=== PATIENT | male | born 1940 | race Caucasian/White ===

== ENCOUNTER 2019-09-26 13:09 | Inpatient (IN) | payer MEDICARE, BC ==
[~2019-09-26] VITALS: Ht 177.8 cm; Wt 86.2 kg
--- NOTE | 2019-09-26 13:20 | NUR ---
BIB DEPRESSED, INSOMNIA FOR DAYS. "I FEEL SUICIDAL." "I'M JUST TIRED OF LIFE". TO ER BED 11, HOOKED TO MONITOR, CHANGED TO HOSP GOWN, PROVIDED W WARM BLANKET, PATIENT AOx4, BREATHING EVEN AND UNLABORED. DR MARTINEZ AT BEDSIDE, 1:1 SITTER AT BEDSIDE Addendum: 09/26/19 at 1345 by ELZA BIB FRIEND IVETH CAST FOR BEING DEPRESSED, INSOMNIA FOR DAYS. "I FEEL SUICIDAL." "I'M JUST TIRED OF LIFE". TO ER BED 11, HOOKED TO MONITOR, CHANGED TO HOSP GOWN, PROVIDED W WARM BLANKET, PATIENT AOx4, BREATHING EVEN AND UNLABORED. DR MARTINEZ AT BEDSIDE, 1:1 SITTER AT BEDSIDE
--- NOTE | 2019-09-26 13:25 | NUR ---
PA FOSTER AT BEDSIDE
--- NOTE | 2019-09-26 13:40 | NUR ---
URINE SAMPLE COLLECTED AND SENT TO LAB
[2019-09-26 13:42] LABS: BASOPHILS % (AUTO) 0.3 % (0.0-2.0); EOSINOPHILS % (AUTO) 0.9 % (0.0-6.0); HEMATOCRIT 43 % (39-51); HEMOGLOBIN 14.4 g/dL (13.5-17.5); LYMPHOCYTES # (AUTO) 1.3 /CMM (0.8-4.8); LYMPHOCYTES % (AUTO) 12.3 % (20.0-44.0); MEAN CORPUSCULAR HGB CONC 33 g/dl (31.0-36.0); MEAN CORPUSCULAR VOLUME 102 fL (80-96); MONOCYTES # (AUTO) 0.7 /CMM (0.1-1.30); MONOCYTES % (AUTO) 6.8 % (2.0-12.0); NEUTROPHILS # (AUTO) 8.2 /CMM (1.8-8.9); NEUTROPHILS % (AUTO) 79.7 % (43.0-81.0); PLATELET COUNT (AUTO) 227 /CMM (150-450); RED BLOOD CELL COUNT(AUTO) 4.25 MIL/uL (4.5-6.0); WHITE BLOOD COUNT (AUTO) 10.3 K/uL (4.3-11.0)
[2019-09-26 13:44] LABS: APPEARANCE,URINE Clear (CLEAR); BILIRUBIN,URINE Negative (NEGATIVE); BLOOD, URINE Negative Ery/uL (NEGATIVE); COLOR,URINE Yellow (YELLOW); KETONES,URINE Negative (NEGATIVE); LEUKOCYTE ESTERASE ,URINE Negative (NEGATIVE); NITRITE, URINE Negative (NEGATIVE); PH,URINE 6.5 (5.0-8.0); PROTEIN,URINE Negative (NEGATIVE); UGLUCOSE Negative (NEGATIVE); UROBILINOGEN,URINE 0.2 EU/dL (0.2)
--- NOTE | 2019-09-26 13:46 | NUR ---
FRIEND: IVETH CAST [phone] DAUGHTER: SIGRID LOYOLA ([facility]) [phone]
[2019-09-26 13:58] LABS: ALANINE AMINOTRANSFERASE 22 U/L (12-78); ALBUMIN 3.6 g/dL (3.4-5.0); ALCOHOL, BLOOD < 3 mg/dL (0-0); ALKALINE PHOSPHATASE 196 U/L (46-116); ASPARTATE AMINOTRANSFERASE 23 U/L (15-37); BILIRUBIN,DIRECT 0.1 mg/dL (0.0-0.2); BILIRUBIN,TOTAL 0.4 mg/dL (0.2-1.0); CALCIUM, SERUM 8.5 mg/dL (8.5-10.1); CARBON DIOXIDE 26 mmol/L (21-32); CHLORIDE 105 mmol/L (98-107); CREATININE 1.3 mg/dL (0.6-1.3); GLUCOSE 99 mg/dL (74-106); POTASSIUM 4.8 mmol/L (3.5-5.1); SALICYLATE 4.5 mg/dL (2.8-20.0); SODIUM SERUM 141 mmol/L (136-145); TOTAL PROTEIN, SERUM 7.2 g/dL (6.4-8.2); UREA NITROGEN, BLOOD 18 mg/dL (7-18)
[2019-09-26 14:02] LABS: ACETAMINOPHEN 0 ug/ml (10-30)
[2019-09-26] MEDS ORDERED: ESCI20TA PO (14:53)
[2019-09-26] MEDS ORDERED: QUET25TA PO (14:53)
[2019-09-26] MEDS ORDERED: ALPR2TAB7 PO (14:53)
[2019-09-26] MEDS ORDERED: MIRT30TA7 PO (14:53)
[2019-09-26] MEDS ORDERED: ATOR10TA PO (14:53)
--- NOTE | 2019-09-26 14:53 | NUR ---
IVETH FRIEND IVETH'S HOME NUMBER FRIEND
[2019-09-26] MEDS ORDERED: ALPRAZOLAM 0.5 MG TABLET PO ONE ×2 (15:00→15:30)
[2019-09-26] MEDS ORDERED: ALPRAZOLAM 0.5 MG TABLET ONE ×2 (15:11→15:12)
--- NOTE | 2019-09-26 15:15 | NUR ---
FLYING II INSTRUCTOR ELIZABETH VALADEZ AT BEDSIDE
--- NOTE | 2019-09-26 16:05 | NUR ---
CALLED NURSING SUP FOR [facility] BED.
--- NOTE | 2019-09-26 16:28 | NUR ---
ATTEMPTED TO CALL REPORT, RECIEVING NURSE ON BREAK. WILL CALL BACK IN 15 MINS.
--- NOTE | 2019-09-26 16:42 | NUR ---
report given to barbra ross of [facility]
[2019-09-26] MEDS ORDERED: LORAZEPAM 1 MG TABLET PO STA (17:57)
[2019-09-26] MEDS ORDERED: ZOLPIDEM TARTRATE 5 MG TABLET PO PRN (18:00)
[2019-09-26] MEDS ORDERED: LORAZEPAM 1 MG TABLET PO PRN (18:00)
[2019-09-26] MEDS ORDERED: MAGNESIUM HYDROXIDE 30 ML UDC PO PRN (18:00)
[2019-09-26] MEDS ORDERED: ACETAMINOPHEN 325 MG TABLET PO PRN (18:00)
[2019-09-26] MEDS ORDERED: MAG HYDROX/AL HYDROX/SIMETH 30 ML UDC PO PRN (18:00)
[2019-09-26] MEDS ORDERED: BLOOD SUGAR DIAGNOSTIC 1 EACH STRIP IN ONE (18:00)
--- NOTE | 2019-09-26 18:20 | NUR ---
PATIENT IS AN 79 YO MALE BROUGHT IN TO THE HOSPITAL, ADMITTED ON A 5150 FOR DTS, FROM HOME. PATIENT IS ADMITTED ON A 5150 FOR DTS FOR BEING INCREASINGLY DEPRESSED, C/O INSOMNIA, STATING HE DOES NOT WANT TO LIVE ANYMORE AND HAVING MOOD SWINGS. UPON FACE TO FACE ASSESSMENT PATIENT IS AOX4, IS VERY ANXIOUS, WRINGING HIS HANDS, UPSET ABOUT THE 72 HOUR HOLD. THE PATIENT SEEMS FORGETFUL AND DEPRESSED. HE DENIES SI/HI AND VAH. INFORMED MD OF ADMISSION ORDERS. PATIENT SIGNED ADMISSION FORMS. PATIENT REFUSED SKIN CHECK. PATIENT SEARCHED FOR CONTRABAND. FALL PRECAUTIONS IN PLACE AND SAFETY CHECKS OBSERVED. PATIENTS RIGHTS HANDBOOK AND GUIDE TO PRESCRIPTIONS GIVEN. WILL CONTINUE TO MONITOR Q15 FOR MOOD,SAFETY AND BEHAVIOR.
--- NOTE | 2019-09-26 19:00 | NUR ---
[facility] RN NOTES: RECEIVED NEW ADMISSION FROM DAY SHIFT FOR COMPLETE THE ADMISSON PROCESS , PT. CAME AROUND IN DAY SHIFT AT 17:46, WILL CONTINUITY WITH CARE.
--- NOTE | 2019-09-26 19:30 | NUR ---
[facility] RN OPENING NOTES: PATIENT RESTING IN HIS BED, EASILY AGITED ,DISHELVED ,PARANOID DENIES SI/HI/AVH AT THIS TIME,.ENCOURAGED FOR VERBALIZATION OF FEELINGS, SAFETY PRECAUTIONS IMPLEMENTED. INTERACT WITH ENGAGED, WILL CONTINUE TO MONITOR Q15MIN ROUNDS FOR SAFETY AND BEHAVIOR.
--- NOTE | 2019-09-26 20:00 | NUR ---
RN NOTES: PT. REFUSED FULL BODY SKIN ASSESMENT AND PICTURES AND PT. BEHAVIOR VERY UNOOPERTIVE, ENCOURAGED X 3 EXPLINED RISKS AND BENEFITS , STILL REUSED , ENDORSE TO AM RN FOR CONTINUITY OF CARE.
[2019-09-26 20:58] VITALS: BP 148/78
[2019-09-26 22:28] VITALS: BP 123/78
[2019-09-26] MEDS: ATORVASTATIN 10 MG TABLET PO SCH (23:01)
--- NOTE | 2019-09-27 05:06 | NUR ---
[facility] RN NOTES : PT.C/O AGITATION , PACING IN HALLWAY AND ROOM , PARANOID ,ATIVAN 1 MG PO PRN GIVEN PER PT. REQUEST, WILL CONTINUE TO MONITOR.
--- NOTE | 2019-09-27 05:29 | NUR ---
RN NOTES: PT. REFUSED AM LABS, ENCOURAGE X3 EXPLINED RISKS AND BENEFITS STILL REFUSED.
--- NOTE | 2019-09-27 06:31 | NUR ---
[facility] RN CLOSING NOTE: PATIENT AWAKE AT THIS TIME ,EASILY AGITAED ,PARANOID DISHELVED , FOCUSING ON GOING HOME, DISHELVED,HYPERVERBAL, NEEDS FREQUENTLY REDIRECTIONS NO ACUTE DISTRESS NOTED ,DENIES SI/HI/AVH AT THIS TIME. SAFETY PRECAUTIONS IMPLEMENTED.ALL NEEDS ATTENDED AND ANTICIPATED, ENCOURGED FOR VERBALIZED ANY FEELING . WILL CONTINUE TO MONITOR FOR PT'S SAFETY AND BEHAVIOR .
[2019-09-27 08:00] VITALS: BP 142/67
[2019-09-27] MEDS ORDERED: hydrOXYzine PAMOATE 25 MG CAPSULE PO PRN (09:30)
[2019-09-27] MEDS: clonazePAM 1 MG TABLET PO SCH ×4 (10:02→21:25)
[2019-09-27] MEDS: DIVALPROEX SODIUM 250 MG TABLET.DR PO SCH ×3 (10:57→16:33)
[2019-09-27] MEDS: SERTRALINE HCL 50 MG TABLET PO SCH (10:57)
--- NOTE | 2019-09-27 12:16 | NUR ---
FAMILY CONTACT: SW received a call from pts sister Jolly [phone] requesting to speak to the MD regarding pts treatment. SW explained that pt did not give consent to speak to family regarding his treatment therefore the MD will not call her to discuss pts treatment as that is a violation for his rights. Sister then demanded SW place pt in a fpc psychiatric facility or in a residential treatment center. SW explained that pt will be discharged home as that is what he wishes and also explained that pts cannot be referred to treatment centers without them agreeing to treatment. Sister explained that pt has a long history of substance abuse and self-medicating and also requested pt have a neurological consultation as she states she believes pt has Dementia. SW stated that she will share this information with MD. Sister agreed.
[2019-09-27 13:15] LABS: CHOLESTEROL 128 mg/dL (<200); HDL CHOLESTEROL 61 mg/dL (40-60); LDL 51 mg/dL (0-99); TRIGLYCERIDES 114 mg/dL (30-150)
[2019-09-27 13:16] LABS: ALBUMIN 3.8 g/dL (3.4-5.0); BILIRUBIN,TOTAL 0.4 mg/dL (0.2-1.0); CALCIUM, SERUM 8.9 mg/dL (8.5-10.1); CREATININE 1.2 mg/dL (0.6-1.3); POTASSIUM 4.4 mmol/L (3.5-5.1); TOTAL PROTEIN, SERUM 7.7 g/dL (6.4-8.2)
--- NOTE | 2019-09-27 13:59 | NUR ---
INITIAL DISCHARGE PLAN: Per pt, he wishes to be discharged back home [address] [place], [place] [address] . ALESHA will help form a safe and proper discharge in collaboration with .
[2019-09-27 16:00] VITALS: BP 140/79
[2019-09-27] MEDS ORDERED: INSULIN REGULAR, HUMAN 100 UNIT/ML 10 ML VIAL ONE (19:38)
[2019-09-27] MEDS ORDERED: DEXTROSE 50%-WATER 50 ML DISP.SYRIN ONE (19:38)
[2019-09-27 20:00] VITALS: BP 145/93
[2019-09-27] MEDS: ATORVASTATIN 10 MG TABLET PO SCH (21:30)
[2019-09-27] MEDS: QUETIAPINE FUMARATE 100 MG TABLET PO SCH (21:33)
[2019-09-28 08:00] VITALS: BP 147/87
[2019-09-28] MEDS: clonazePAM 1 MG TABLET PO SCH ×4 (09:02→21:38)
[2019-09-28] MEDS: SERTRALINE HCL 50 MG TABLET PO SCH (09:02)
[2019-09-28] MEDS: DIVALPROEX SODIUM 250 MG TABLET.DR PO SCH ×3 (09:02→16:28)
--- NOTE | 2019-09-28 14:05 | NUR ---
Group Note: ALESHA invited the patient to attend group therapy on 09/28/2019 1 pm to discuss what changes they would like to see in their lives as a result of their stay in [facility]. The patient thanked ALESHA for the invitation and stated, "I will try to attend tomorrow". ALESHA encouraged the pt. to attend however, pt. refused.
--- NOTE | 2019-09-28 15:51 | NUR ---
Family Contact: Pts daughter, Carol ([phone]), and spoke to her about the pts discharge plan. She stated that she wanted to be provided with an update about the pts stay. SW stated that the pt wants to return to his home and is refusing to be placed in a treatment center or a nursing facility. Pts daughter stated that she wanted to talk to the pts MD.
--- NOTE | 2019-09-28 15:54 | NUR ---
Individual Intervention with the pt: SW met with the pt at [facility] and discussed the pts discharge plan. Pt stated that he wanted to be discharged to his home and he is refusing to be placed. Pt stated that he would accept referrals but he would not be placed somewhere other than his home. Pt stated that the MD informed him that the pt would be discharged the following day.
[2019-09-28 16:00] VITALS: BP 136/80
[2019-09-28 20:48] VITALS: BP 152/87
[2019-09-28] MEDS: ATORVASTATIN 10 MG TABLET PO SCH (21:38)
[2019-09-28] MEDS: QUETIAPINE FUMARATE 100 MG TABLET PO SCH (21:38)
[2019-09-29 08:00] VITALS: BP 159/86
[2019-09-29] MEDS: clonazePAM 1 MG TABLET PO SCH (08:03)
[2019-09-29] MEDS: DIVALPROEX SODIUM 250 MG TABLET.DR PO SCH (08:03)
[2019-09-29] MEDS: SERTRALINE HCL 50 MG TABLET PO SCH (08:03)
--- NOTE | 2019-09-29 08:48 | NUR ---
FAMILY CONTACT: ALESHA contacted pts sister Jolly [phone] and informed her pt will be discharged on this present day. ALESHA provided sister with substance abuse resources to [facility] [address] [place] [address] Tel. , [facility] [address] [place] [address] , [facility] [address] [place] [address] .
--- NOTE | 2019-09-29 10:47 | NUR ---
DISCHARGE NOTE: Pt will be discharged at 1:00pm via [facility] home [address] [place] [address]. Pts sister Jolly [phone] has been notified and she agreed with discharge plan. Pts mood is anxious with congruent affect. Pt denied visual/auditory hallucinations and denied suicidal/homicidal ideation. Patient was referred to the [address] [address] / and was encouraged to present at 9am on Monday September 30, 2019. Additional resources included [facility] [address] [place] [address] and [facility] [address] [place] [address] . Pt was also given a referral to Psychiatrist: Dr. Myers [facility] [address] [facility] [phone] . where his polysubstance use can be addressed. Other referrals included [facility] Address: [address] [place] [address] . The multidisciplinary exit care form was done, printed, signed, and given to the patient. Addendum: 09/29/19 at 1138 by BILLY EDUARDO PT IS BEING DISCHARGED AMA THEREFORE TRANSPORTATION WILL NO BE PROVIDED BY [facility]. PT STATES HE WILL PAY FOR HIS OWN TAXI AND HAS MONEY. SW CONFIRMED PT HAS MONEY TO PAY FOR TAX[facility].
--- NOTE | 2019-09-29 11:51 | NUR ---
RN-CO: Patient is alert and oriented x4, self care, steady gait and able to make needs known. He was seen and examined by Dr Amaya today, patient was insisting to be discharge and therefore he will leave AGAINTS MEDICAL ADVICE. Dr Amaya discontinued 72 hour hold. He denied suicidal and homicidal ideation. Denied auditory and visual hallucinations. No pain and discomforts. Patient signed AMA form after RN read it to him. He stated he is willing to pay taxi service. All valuables and clothes will be given back to him. Referrals to psychiatrist and [facility] was given to him with the complete telephone number and address.
--- NOTE | 2019-09-29 12:47 | NUR ---
RN-CO: ALL VALUABLES WAS GIVEN BACK TO THE PATIENT AND WITNESSED BY STAFF. SIGNED THE BELONGINGS FORM.
--- NOTE | 2019-09-29 13:10 | NUR ---
RN-CO: Patient was escorted by staff to lobby. All valuables and clothes was given back.
== END 2019-09-29 13:10 | disposition left against medical advice (07) | DRG 885 ==
LOC: ER 13:15 → GPS 16:14
PROVIDERS: ADMIT Psychiatry & Neurology Psychiatry; ATTEND Nurse Practitioner Acute Care
DX: F33.2 Major depressive disorder, recurrent severe without psychotic features (principal); R45.851 Suicidal ideations; F13.20 Sedative, hypnotic or anxiolytic dependence, uncomplicated; F41.9 Anxiety disorder, unspecified; E86.0 Dehydration; G47.00 Insomnia, unspecified; E78.5 Hyperlipidemia, unspecified; Z85.528 Personal history of other malignant neoplasm of kidney; Z85.46 Personal history of malignant neoplasm of prostate; Z79.899 Other long term (current) drug therapy; R73.9 Hyperglycemia, unspecified; F29 Unspecified psychosis not due to a substance or known physiological condition; N28.9 Disorder of kidney and ureter, unspecified; F10.10 Alcohol abuse, uncomplicated; Y90.9 Presence of alcohol in blood, level not specified
CPT/HCPCS: 36415; 71045-TC; 80048-TC; 80053-TC; 80061-TC; 80076-TC; 80305; 81000-TC; 82962-TC; 85025-TC; 87081-TC; G0480; J1815; Q0177

== ENCOUNTER 2019-11-15 13:59 | Emergency (ER) | payer MEDICARE, BC ==
[~2019-11-15] VITALS: Ht 180.3 cm; Wt 79.4 kg
[~2019-11-15 13:59] MED LIST: ALPR2TAB7 PO; ATOR10TA PO; ESCI20TA PO; MIRT30TA7 PO; QUET25TA PO
--- NOTE | 2019-11-15 14:26 | NUR ---
iv line started blood drawn and sent to lab.
[2019-11-15 14:36] LABS: BASOPHILS % (AUTO) 0.2 % (0.0-2.0); EOSINOPHILS % (AUTO) 0.2 % (0.0-6.0); HEMATOCRIT 45 % (39-51); HEMOGLOBIN 15.2 g/dL (13.5-17.5); LYMPHOCYTES # (AUTO) 0.9 /CMM (0.8-4.8); MEAN CORPUSCULAR HGB CONC 34 g/dl (31.0-36.0); MEAN CORPUSCULAR VOLUME 101 fL (80-96); MONOCYTES # (AUTO) 0.9 /CMM (0.1-1.30); MONOCYTES % (AUTO) 6.6 % (2.0-12.0); PLATELET COUNT (AUTO) 197 /CMM (150-450); RED BLOOD CELL COUNT(AUTO) 4.44 MIL/uL (4.5-6.0); WHITE BLOOD COUNT (AUTO) 12.8 K/uL (4.3-11.0)
[2019-11-15 14:45] LABS: CALCIUM, SERUM 8.5 mg/dL (8.5-10.1); CARBON DIOXIDE 27 mmol/L (21-32); CHLORIDE 104 mmol/L (98-107); CREATININE 1.2 mg/dL (0.6-1.3); GLUCOSE 109 mg/dL (74-106); POTASSIUM 4.2 mmol/L (3.5-5.1); SODIUM SERUM 139 mmol/L (136-145); UREA NITROGEN, BLOOD 22 mg/dL (7-18)
[2019-11-15 14:50] LABS: ALANINE AMINOTRANSFERASE 42 U/L (12-78); ALBUMIN 3.9 g/dL (3.4-5.0); ALCOHOL, BLOOD < 3 mg/dL (0-0); ALKALINE PHOSPHATASE 172 U/L (46-116); ASPARTATE AMINOTRANSFERASE 33 U/L (15-37); BILIRUBIN,TOTAL 0.8 mg/dL (0.2-1.0); LIPASE 73 U/L (73-393); TOTAL PROTEIN, SERUM 7.6 g/dL (6.4-8.2)
--- NOTE | 2019-11-15 15:10 | NUR ---
dr pettit at bedside for eval.
[2019-11-15] MEDS ORDERED: ASPIRIN 325 MG TABLET ONE (15:23)
[2019-11-15] MEDS ORDERED: NITROGLYCERIN PACKET 1 GM PACKET ONE (15:23)
[2019-11-15] MEDS ORDERED: ASPIRIN 325 MG TABLET PO ONE (15:30)
[2019-11-15] MEDS ORDERED: NITROGLYCERIN PACKET 1 GM PACKET TOP ONE (15:30)
--- NOTE | 2019-11-15 15:35 | NUR ---
unable to provide urine sample at this time. ermd dr pettit aware.
[2019-11-15] MEDS ORDERED: ACETAMINOPHEN 325 MG TABLET PO PRN (16:00)
[2019-11-15] MEDS ORDERED: HYDROCODONE/APAP 5/325MG 1 EACH TABLET PO PRN (16:00)
[2019-11-15] MEDS ORDERED: MAGNESIUM HYDROXIDE 30 ML UDC PO PRN (16:00)
[2019-11-15] MEDS ORDERED: ONDANSETRON HCL/PF 4 MG/2 ML VIAL IVP PRN (16:00)
[2019-11-15] MEDS ORDERED: Z GUARD REMEDY 2 OZ OINT TP PRN (16:00)
[2019-11-15] MEDS ORDERED: ZOLPIDEM TARTRATE 5 MG TABLET PO PRN (16:00)
--- NOTE | 2019-11-15 16:11 | NUR ---
report given to lionel ross for scott. awaiting transfer to floor.
--- NOTE | 2019-11-15 16:36 | NUR ---
pt states feeling much better. refusing to stay and wants to go home. Patient does not wish to proceed with medical care recommended by Dr. Sandy . Patient given information related to possible complications, up to and including , which could occur as a result of leaving the hospital at this time. Patient verbalizes understanding of risks involved due to leaving against medical advice. Patient has signed AMA form.
[2019-11-15 16:38] VITALS: BP 145/98
[2019-11-16] MEDS ORDERED: ASPIRIN 81 MG TAB.CHEW PO SCH (09:00)
[2019-11-23] MEDS ORDERED: QUET25TA PO (11:44)
[2019-11-23] MEDS ORDERED: GABA100C PO (11:44)
[2019-11-23] MEDS ORDERED: CEPH-570 PO (11:44)
[2019-11-23] MEDS ORDERED: DIVA250T4 PO (11:44)
== END 2019-11-15 16:39 | disposition left against medical advice (07) ==
LOC: ER 13:59 → UNDOADMIN 16:09 → TELE 16:09 → ER 16:39
DX: R07.89 Other chest pain (principal); E78.5 Hyperlipidemia, unspecified; F32.9 Major depressive disorder, single episode, unspecified; F41.9 Anxiety disorder, unspecified; Z98.890 Other specified postprocedural states
CPT/HCPCS: 36415; 71045-TC; 80053-TC; 83690-TC; 84484-TC; 85025-TC; G0480

== ENCOUNTER 2019-11-17 16:57 | Inpatient (IN) | payer MEDICARE, BC ==
[~2019-11-17] VITALS: Ht 185.4 cm; Wt 84.0 kg
--- NOTE | 2019-11-17 17:08 | NUR ---
BIB RA C/O ALTERED FROM HOME, PT WAS FOUND DISORIENTED, WALKING ON BROKEN GLASS. PRESENTS TO ED RAMBLING, NOT MAKING SENSE. ABLE TO STATE HIS NAME. CUTS ON FEET, SCABS ON BLE, DRIED BLOOD ON FACE, NO EVIDENCE OF OPEN WOUND. PT CONSTANTLY MOVING AND DIFFICULT TO CALM. TACHYCARDIC, UNABLE TO OBTAIN BLOOD PRESSURE. NO ACUTE DISTRESS NOTED. PLACED ON MONITOR AND READY FOR EVAL.
[2019-11-17] MEDS ORDERED: OLANZAPINE 10 MG VIAL IM ONE ×2 (17:14→17:30)
[2019-11-17] MEDS ORDERED: diphenhydrAMINE HCL 50 MG/ML VIAL ONE ×2 (17:14→19:30)
[2019-11-17] MEDS ORDERED: LORAZEPAM INJ 2 MG/ML VIAL ONE ×3 (17:15→21:51)
--- NOTE | 2019-11-17 17:20 | NUR ---
IV LINE ESTABLISHED, MEDS GIVEN, IVF INFUSING. PT STARLA WELL. UNABLE TO OBTAIN EKG DUE TO PT CONTINUOUSLY MOVING. AWARE.
[2019-11-17 17:29] LABS: BASOPHILS % (AUTO) 0.1 % (0.0-2.0); EOSINOPHILS % (AUTO) 0.1 % (0.0-6.0); HEMATOCRIT 42 % (39-51); HEMOGLOBIN 13.8 g/dL (13.5-17.5); LYMPHOCYTES # (AUTO) 0.9 /CMM (0.8-4.8); LYMPHOCYTES % (AUTO) 4.1 % (20.0-44.0); MEAN CORPUSCULAR HGB CONC 33 g/dl (31.0-36.0); MEAN CORPUSCULAR VOLUME 104 fL (80-96); MONOCYTES # (AUTO) 1.9 /CMM (0.1-1.30); NEUTROPHILS # (AUTO) 18.5 /CMM (1.8-8.9); NEUTROPHILS % (AUTO) 86.7 % (43.0-81.0); PLATELET COUNT (AUTO) 210 /CMM (150-450); RED BLOOD CELL COUNT(AUTO) 4.06 MIL/uL (4.5-6.0); WHITE BLOOD COUNT (AUTO) 21.4 K/uL (4.3-11.0)
[2019-11-17] MEDS ORDERED: diphenhydrAMINE HCL 50 MG/ML VIAL IM ONE (17:30)
[2019-11-17] MEDS ORDERED: LORAZEPAM INJ 2 MG/ML VIAL IV ONE ×2 (17:30→19:00)
[2019-11-17] MEDS ORDERED: IV NS 0.9% 1,000 ML BAG IV ONE ×2 (17:30→18:30)
--- NOTE | 2019-11-17 17:37 | NUR ---
CALLED FOR TELE BED AND SUBMITTED MOVE SHEET TO ADMITTING.
--- NOTE | 2019-11-17 17:38 | NUR ---
PT UNABLE TO SIT STILL FOR CT. INFORMED RADIOLOGY TO GIVE MED MORE TIME TO WORK
[2019-11-17 17:44] LABS: SERUM AMMONIA < 10 umol/L (11-32)
--- NOTE | 2019-11-17 17:49 | NUR ---
URINE COLLECTED VIA STRAIGHT CATH PER PROTOCOL AND SENT TO STAT LAB
[2019-11-17 17:54] LABS: THYROID STIMULATING HORMONE 1.824 uIU/mL (0.358-3.74)
[2019-11-17 18:05] LABS: APPEARANCE,URINE Cloudy (CLEAR); BILIRUBIN,URINE MODERATE (NEGATIVE); BLOOD, URINE Moderate Ery/uL (NEGATIVE); COLOR,URINE Yellow (YELLOW); KETONES,URINE 15 (NEGATIVE); LEUKOCYTE ESTERASE ,URINE Negative (NEGATIVE); NITRITE, URINE Negative (NEGATIVE); PROTEIN,URINE 100 mg/dl (NEGATIVE); UGLUCOSE Negative (NEGATIVE); UROBILINOGEN,URINE 0.2 EU/dL (0.2)
[2019-11-17 18:09] LABS: CALCIUM, SERUM 8.2 mg/dL (8.5-10.1); CARBON DIOXIDE 23 mmol/L (21-32); CHLORIDE 103 mmol/L (98-107); CREATININE 2.9 mg/dL (0.6-1.3); GLUCOSE 85 mg/dL (74-106); POTASSIUM 4.8 mmol/L (3.5-5.1); SODIUM SERUM 142 mmol/L (136-145); UREA NITROGEN, BLOOD 62 mg/dL (7-18)
[2019-11-17 18:14] LABS: ALANINE AMINOTRANSFERASE 54 U/L (12-78); ALCOHOL, BLOOD < 3 mg/dL (0-0); ALKALINE PHOSPHATASE 148 U/L (46-116); ASPARTATE AMINOTRANSFERASE 92 U/L (15-37); BILIRUBIN,DIRECT 0.2 mg/dL (0.0-0.2); BILIRUBIN,TOTAL 0.9 mg/dL (0.2-1.0); SALICYLATE 4.4 mg/dL (2.8-20.0); TOTAL PROTEIN, SERUM 7.5 g/dL (6.4-8.2)
[2019-11-17 18:15] LABS: ACETAMINOPHEN < 2 ug/ml (10-30)
[2019-11-17 18:21] LABS: BACTERIA,URINE 1+ /HPF (None Seen); SQUAMOUS EPITHELIAL CELL,UR Few /HPF (None Seen)
--- NOTE | 2019-11-17 18:21 | NUR ---
S/W PT DAUGHTER FROM [place]. WOULD LIKE TO KEEP UPDATED.
--- NOTE | 2019-11-17 18:25 | NUR ---
PT STILL MOVING AROUND. MADE AWARE.
[2019-11-17] MEDS ORDERED: CEFTRIAXONE 1GM BAG (ER ONLY) 50 ML IV ONE ×2 (18:30→18:49)
--- NOTE | 2019-11-17 18:48 | NUR ---
UNABLE TO OBTAIN BLOOD PRESSURE READING. AWARE.
--- NOTE | 2019-11-17 19:12 | NUR ---
FOUND LARGE AMOUNT OF VAN ([phone]) IN PT'S PANTS POCKET. COUNTED VAN WITH RN PRADIP, PLACED VAN, ID CARD, AND INSURANCE CARD IN SECURETY BAG, AND PLACED IN SAFE IN HOUSE SUP OFFICE.
--- NOTE | 2019-11-17 19:25 | NUR ---
Tejas rosas in ED - 11/17/19 at 1942 by MICHELE PT STILL MOVING AROUND. MADE AWARE.
[2019-11-17] MEDS ORDERED: diphenhydrAMINE HCL 50 MG/ML VIAL IV ONE (19:30)
--- NOTE | 2019-11-17 19:59 | NUR ---
MADE SEVERAL ATTEMPTS TO OBTAIN EKG WITHOUT SUCCESS.
--- NOTE | 2019-11-17 20:01 | NUR ---
PT TAKEN TO RADIOLOGY VIA PETRA
[2019-11-17] MEDS ORDERED: MIDAZOLAM HCL 2 MG/2ML VIAL ONE ×2 (20:02→20:05)
[2019-11-17] MEDS ORDERED: MIDAZOLAM HCL 5 MG/5ML VIAL IV ONE (20:30)
--- NOTE | 2019-11-17 20:36 | NUR ---
S/W DAUGHTER FOR UPDATE.
--- NOTE | 2019-11-17 20:44 | NUR ---
RADIOLOGY UNABLE TO PERFORM CT DUE TO PT CONTINUED AGITATION. AWARE.
--- NOTE | 2019-11-17 20:44 | NUR ---
KASSANDRA CALZADA AT BEDSIDE
[2019-11-17] MEDS ORDERED: IV NS 0.9% 1,000 ML IV PRN (20:54)
[2019-11-17] MEDS ORDERED: MAGNESIUM HYDROXIDE 30 ML UDC PO PRN (21:00)
[2019-11-17] MEDS ORDERED: ONDANSETRON HCL/PF 4 MG/2 ML VIAL IVP PRN (21:00)
[2019-11-17] MEDS ORDERED: Z GUARD REMEDY 2 OZ OINT TP PRN (21:00)
[2019-11-17] MEDS ORDERED: MAG HYDROX/AL HYDROX/SIMETH 30 ML UDC PO PRN (21:00)
--- NOTE | 2019-11-17 21:06 | NUR ---
REPORT GIVEN TO ILIANA CHRISTENSEN FOR 313-2 TELE, KASSANDRA CALZADA ADMITTING
--- NOTE | 2019-11-17 21:37 | NUR ---
ATTEMPT FOR EXAM AT 21:05. PT NOT IN 313 YET, IS BEING TRANSFERRED FROM ER. NOT ABLE TO PERFORM THE EXAM ON PT IN ER DUE TO NON COOPERATIVE AND REFUSING ANY EXAM. PT IS BEING MEDICATED FOR SEDATION.
--- NOTE | 2019-11-17 21:50 | NUR ---
21:50 PT STILL IN ER, RESTLESS, KICKING AND HITTING, UNABLE TO DO EXAM ON PT
[2019-11-17] MEDS ORDERED: LORAZEPAM INJ 2 MG/ML VIAL IV PRN (22:00)
[2019-11-17] MEDS: MIRTAZAPINE 15 MG TABLET PO SCH (22:00)
--- NOTE | 2019-11-17 22:06 | NUR ---
S/W DAUGHTER. SHE WILL CALL 3 WEST IN THE MORNING.
[2019-11-17] MEDS ORDERED: HALOPERIDOL LACTATE INJ 5 MG/ML VIAL ONE (23:08)
[2019-11-17] MEDS ORDERED: HALOPERIDOL LACTATE INJ 5 MG/ML VIAL IV ONE (23:30)
[2019-11-18] MEDS ORDERED: HALOPERIDOL LACTATE INJ 5 MG/ML VIAL ONE (00:26)
[2019-11-18] MEDS ORDERED: HALOPERIDOL LACTATE INJ 5 MG/ML VIAL IV ONE ×2 (01:00)
[2019-11-18 02:55] VITALS: BP 107/75
--- NOTE | 2019-11-18 02:55 | NUR ---
MACHINIST OUTSIDE NOTE, RECEIVED PATIENT FROM E.R. VIA STECHER, NO S/S OR COMPLAINTS OF PAIN AT THIS TIME. PATIENT IS DISPLAYING NO S/S OF APPARENT DISTRESS AT THIS TIME. PATIENT BREATHING IS UNLABORED WITH EQUAL RISE AND FALL OF THE CHEST. PATIENT IS ALERT AND ORIENTED X 1 ON ROOM AIR. IVF NS @ 75 ML/ HR INFUSING WELL INTO RIGHT 20 GAUGE THAT IS INTACT, PATENT, AND FLUSHING WELL WITH NO S/S OF INFILTRATION. PATIENT ASSISTED WITH TURNING AND REPOSITIONING Q 2 HR AND PRN FOR COMFORT AND CIRCULATION. PATIENT HAS NO NEEDS AT THIS TIME. PATIENT BELONGINGS LIST, ADVANCED DIRECTIVES PREFERENCE, IMMUNIZATIONS QUESTIONER, AND SKIN ASSESSMENT HAS BEEN COMPLETED. PATIENT ORIENTATED TO ROOM, FLOOR, AND STAFF ALL QUESTIONS ANSWERED. PATIENT EDUCATED ON THE USE OF THE CALL LIGHT. PATIENT BED SIDE RAILS UP X 2 FOR SAFETY, BED IS LOCKED AND LOW WILL CONTINUE TO MONITOR AND MAINTAIN SAFETY. SINUS RHYTHM HEART RATE 74
--- NOTE | 2019-11-18 02:56 | NUR ---
PT TRANSFERED PER ACLS PROTOCOL
[2019-11-18 03:00] VITALS: BP 107/75
--- NOTE | 2019-11-18 05:50 | NUR ---
COLLAR SEPARATOR NOTE, PATIENT IN BED, NO S/S OR COMPLAINTS OF PAIN AT THIS TIME. PATIENT IS DISPLAYING NO S/S OF APPARENT DISTRESS AT THIS TIME. PATIENT BREATHING IS UNLABORED WITH EQUAL RISE AND FALL OF THE CHEST. PATIENT IS ALERT AND ORIENTED X 1 ON ROOM AIR. IVF NS @ 75 ML/ HR INFUSING WELL INTO RIGHT 20 GAUGE THAT IS INTACT, PATENT, AND FLUSHING WELL WITH NO S/S OF INFILTRATION. PATIENT ASSISTED WITH TURNING AND REPOSITIONING Q 2 HR AND PRN FOR COMFORT AND CIRCULATION. ALL PATIENT NEEDS ANTICIPATED AND MET. PATIENT KEPT CLEAN, DRY, AND COMFORTABLE THROUGH OUT SHIFT. PATIENT BED SIDE RAILS UP X 2 FOR SAFETY, BED IS LOCKED AND LOW WILL CONTINUE TO MONITOR AND MAINTAIN SAFETY. SINUS RHYTHM, HEART RATE 74
[2019-11-18 06:12] LABS: BASOPHILS % (AUTO) 0.2 % (0.0-2.0); EOSINOPHILS % (AUTO) 0.4 % (0.0-6.0); HEMATOCRIT 38 % (39-51); HEMOGLOBIN 12.5 g/dL (13.5-17.5); LYMPHOCYTES # (AUTO) 1.3 /CMM (0.8-4.8); LYMPHOCYTES % (AUTO) 10.3 % (20.0-44.0); MEAN CORPUSCULAR HGB CONC 33 g/dl (31.0-36.0); MEAN CORPUSCULAR VOLUME 103 fL (80-96); MONOCYTES # (AUTO) 1.2 /CMM (0.1-1.30); MONOCYTES % (AUTO) 9.6 % (2.0-12.0); NEUTROPHILS # (AUTO) 9.7 /CMM (1.8-8.9); NEUTROPHILS % (AUTO) 79.5 % (43.0-81.0); PLATELET COUNT (AUTO) 167 /CMM (150-450); RED BLOOD CELL COUNT(AUTO) 3.68 MIL/uL (4.5-6.0); WHITE BLOOD COUNT (AUTO) 12.3 K/uL (4.3-11.0)
[2019-11-18 06:22] LABS: CHOLESTEROL 117 mg/dL (<200); HDL CHOLESTEROL 51 mg/dL (40-60); LDL 51 mg/dL (0-99); TRIGLYCERIDES 90 mg/dL (30-150)
[2019-11-18 06:31] LABS: CALCIUM, SERUM 7.5 mg/dL (8.5-10.1); CARBON DIOXIDE 21 mmol/L (21-32); CHLORIDE 109 mmol/L (98-107); CREATININE 1.9 mg/dL (0.6-1.3); GLUCOSE 68 mg/dL (74-106); MAGNESIUM 2.3 mg/dL (1.8-2.4); PHOSPHORUS 4.1 mg/dL (2.5-4.9); SODIUM SERUM 143 mmol/L (136-145); UREA NITROGEN, BLOOD 54 mg/dL (7-18)
[2019-11-18 07:59] VITALS: BP 133/59
--- NOTE | 2019-11-18 08:02 | NUR ---
MS RN -OPENING NOTES RECEIVED PATIENT IN BED, SLEEPING, UNLABORED BREATHING WITH EQUAL RISE AND FALL OF THE CHEST, IVF NS AT 75 ML/HR INFUSING WELL, NO SIGNS OF INFILTRATION AND REDNESS, SIDE RAILS ARE UP AND BED IS LOW.
[2019-11-18] MEDS: QUETIAPINE FUMARATE 25 MG TABLET PO SCH ×2 (08:55→12:59)
--- NOTE | 2019-11-18 08:56 | NUR ---
MS BARRIENTOS- MED ON HOLD 9:00AM SEROQUEL ON HOLD. PATIENT ON NPO.
[2019-11-18] MEDS ORDERED: ESCITALOPRAM OXALATE (10 MG) 10 MG TABLET PO SCH ×2 (09:00)
[2019-11-18] MEDS: IV D5/ 0.9% NACL 1,000 ML IV PRN ×2 (09:12→22:07)
--- NOTE | 2019-11-18 09:29 | NUR ---
WOUND CARE CONSULT: PT PRESENTS WITH MULTIPLE BRUISES, DRY ABRASIONS, VERY LONG TOENAILS, LEFT 5TH TOE AND HEEL WOUND, PRESENT ON ADMISSION. PER REPORT, PT WAS FOUND WALKING IN GLASS BEFORE ADMISSION. RECOMMEND DPM CONSULT. DR MEI NOTIFIED. ALL SKIN PROTECTION MEASURES IN PLACE AND DISCUSSED WITH NURSING STAFF. PT IS INCONTINENT. WILL SEE PRN. CHAVEZ IN AGREEMENT WITH PLAN OF CARE. Addendum: 11/18/19 at 0931 by KORY ORDAZ WNDNU Amended: Links added.
--- NOTE | 2019-11-18 09:41 | NUR ---
MS RN- CT SCAN INFORMED ROSALEE FROM X-RAY THAT PATIENT IS READY FOR TRANSPORT.
[2019-11-18] MEDS ORDERED: ENOXAPARIN SODIUM 30 MG/0.3 ML DISP.SYRIN SQ SCH ×2 (10:30→11:38)
[2019-11-18] MEDS: ENOXAPARIN SODIUM 40 MG/0.4 ML DISP.SYRIN SQ SCH (11:45)
[2019-11-18] MEDS ORDERED: ESCI10TA PO ×2 (12:50→12:51)
[2019-11-18 12:54] VITALS: BP 117/48
[2019-11-18 15:36] VITALS: BP 118/57
[2019-11-18] MEDS: CEFTRIAXONE 1 G in IV D5W 50 ML IV SCH (18:15)
--- NOTE | 2019-11-18 18:56 | NUR ---
MS RN - CLOSING NOTES ENDORSED PATIENT TO BACKER UP NURSE IN BED, AWAKE, AND CONFUSE. SIDE RAILS UP AND BED AT LOW LEVEL TO PREVENT FALL, IVF NS AT 75ML/HR AT RIGHT AC INFUSING WELL. MEDS AND TOTAL CARE GIVEN.
--- NOTE | 2019-11-18 19:50 | NUR ---
MS RN RECEIVE PT A/O X X2 IN STABLE CONDITION AND NOT IN APPARENT DISTRESS SAFETY MEASURES IN PLACE. WILL CONT TO MONITOR
[2019-11-18 20:00] VITALS: BP 130/80
[2019-11-18] MEDS: MIRTAZAPINE 15 MG TABLET PO SCH (22:07)
--- NOTE | 2019-11-19 06:13 | NUR ---
SLEPT WELL. NO SIGNIFICANT CHANGES THROUGHOUT THE SHIFT. STABLE AND NOT IN DISTRESS, ALL NEEDS ATTENDED AND ANTICIPATED, KEPT CLEAN, DRY AND COMFORTABLE. PT MORE ALERT AT THIS TIME. PT COOPERATIVE WITH PLAN OF CARE. SAFETY MEASURES AT ALL TIMES. WILL ENDORSE TO NEXT SHIFT POC. Addendum: 11/19/19 at 0623 by OTIS GREER RN PT ASSISTED REPOSITION EVERY 2 HOURS
[2019-11-19 06:42] LABS: BASOPHILS % (AUTO) 0.2 % (0.0-2.0); EOSINOPHILS % (AUTO) 3.4 % (0.0-6.0); HEMATOCRIT 37 % (39-51); HEMOGLOBIN 12.3 g/dL (13.5-17.5); LYMPHOCYTES % (AUTO) 22.3 % (20.0-44.0); MEAN CORPUSCULAR HGB CONC 34 g/dl (31.0-36.0); MEAN CORPUSCULAR VOLUME 102 fL (80-96); MONOCYTES # (AUTO) 0.9 /CMM (0.1-1.30); MONOCYTES % (AUTO) 9.8 % (2.0-12.0); NEUTROPHILS # (AUTO) 5.7 /CMM (1.8-8.9); NEUTROPHILS % (AUTO) 64.3 % (43.0-81.0); PLATELET COUNT (AUTO) 151 /CMM (150-450); RED BLOOD CELL COUNT(AUTO) 3.57 MIL/uL (4.5-6.0); WHITE BLOOD COUNT (AUTO) 8.9 K/uL (4.3-11.0)
[2019-11-19 07:00] LABS: CALCIUM, SERUM 7.6 mg/dL (8.5-10.1); CREATININE 1.3 mg/dL (0.6-1.3); MAGNESIUM 2.1 mg/dL (1.8-2.4); PHOSPHORUS 2.7 mg/dL (2.5-4.9); POTASSIUM 3.8 mmol/L (3.5-5.1)
[2019-11-19 07:56] VITALS: BP 136/73
--- NOTE | 2019-11-19 09:00 | NUR ---
iv leaking and removed.
--- NOTE | 2019-11-19 09:10 | NUR ---
restart of iv rt. forearm #22 angio.
[2019-11-19] MEDS: QUETIAPINE FUMARATE 25 MG TABLET PO SCH ×4 (09:38→20:39)
[2019-11-19] MEDS: ENOXAPARIN SODIUM 40 MG/0.4 ML DISP.SYRIN SQ SCH (09:39)
[2019-11-19] MEDS ORDERED: QUETIAPINE FUMARATE 25 MG TABLET PO SCH (11:30)
--- NOTE | 2019-11-19 12:08 | NUR ---
DR. CRAWFORD HERE AND RN DISCUSSED THE FACT THAT PT. HAD 100 MG OF SEROQUEL AROUND 0930 AM AND AGREED FOR PT. NOT TO HAVE TILL 1700.
[2019-11-19] MEDS: DIVALPROEX SODIUM 250 MG TABLET.DR PO SCH ×2 (14:03→18:06)
[2019-11-19 16:00] VITALS: BP 146/77
[2019-11-19] MEDS: IV D5/ 0.9% NACL 1,000 ML IV PRN (18:17)
[2019-11-19] MEDS: CEFTRIAXONE 1 G in IV D5W 50 ML IV SCH (19:34)
[2019-11-19 20:00] VITALS: BP 156/88
--- NOTE | 2019-11-19 20:00 | NUR ---
RN NOTES RECEIVED PATIENT IN BED, ALERT AND ORIENTED X2, ROOM AIR, DENIES PAIN AT THIS TIME, ABLE TO VERBALIZE NEEDS, FALL PRECAUTION, PT IS IMPULSIVE AT TIMES, CAN GO TO THE TOILET USING FWW AND WITH ASSISTANCE. WILL CONTINUE TO MONITOR
--- NOTE | 2019-11-19 20:39 | NUR ---
RN NOTES NEW ORDER OF SEROQUEL 50 MG QID, LAST DOSE GIVEN AT 18:06, NOTIFIED PHARMACY, PER MARISOL, SKIP 2100 DOSE TO GET BACK ON TRACK.
[2019-11-19] MEDS: MIRTAZAPINE 15 MG TABLET PO SCH (22:27)
[2019-11-20] MEDS ORDERED: QUETIAPINE FUMARATE 25 MG TABLET PO SCH (02:30)
[2019-11-20 06:23] LABS: CALCIUM, SERUM 7.9 mg/dL (8.5-10.1); POTASSIUM 3.9 mmol/L (3.5-5.1)
--- NOTE | 2019-11-20 07:40 | NUR ---
MS RN OPENING NOTE PATIENT IN BED RESTING COMFORTABLY. PATIENT IN NO ACUTE DISTRESS. NO SOB NOTED. PATIENT BREATHING IS EVEN AND UNLABORED. PATIENT INSTRUCTED TO USE CALL LIGHT FOR ASSISTANCE. PATIENT BED ALARM IS ON. SAFETY PRECAUTIONS IN PLACE. PATIENT BED IS LOCKED AND IN LOWEST POSITION. CALL LIGHT WITHIN REACH. WILL CONTINUE TO MONITOR.
[2019-11-20 08:00] VITALS: BP 152/82
[2019-11-20] MEDS: DIVALPROEX SODIUM 250 MG TABLET.DR PO SCH ×3 (08:09→16:33)
[2019-11-20] MEDS: QUETIAPINE FUMARATE 25 MG TABLET PO SCH ×4 (08:10→21:02)
[2019-11-20] MEDS: ENOXAPARIN SODIUM 40 MG/0.4 ML DISP.SYRIN SQ SCH (08:11)
--- NOTE | 2019-11-20 11:55 | NUR ---
MS RN NOTE DR. CRAWFORD SEEN AND EVALUATED PATIENT. AT THIS TIME PER MD CRAWFORD, WILL NOT ADJUST PATIENT PSYCH MEDICATIONS.
[2019-11-20] MEDS: GABAPENTIN 100 MG CAPSULE PO SCH ×2 (12:36→16:33)
[2019-11-20] MEDS ORDERED: GABAPENTIN 300 MG CAPSULE PO SCH ×2 (13:00)
[2019-11-20 16:00] VITALS: BP 152/76
[2019-11-20] MEDS: IV D5/ 0.9% NACL 1,000 ML IV PRN (16:34)
[2019-11-20] MEDS: CEFTRIAXONE 1 G in IV D5W 50 ML IV SCH (18:12)
--- NOTE | 2019-11-20 18:24 | NUR ---
MS RN CLOSING NOTE PATIENT IN BED RESTING COMFORTABLY. PATIENT IN NO ACUTE DISTRESS. NO SOB NOTED. PATIENT BREATHING IS EVEN AND UNLABORED. PATIENT IV PATENT AND INTACT. PATIENT NEEDS AND CONCERNS ADDRESSED. PATIENT KEPT CLEAN, DRY AND COMFORTABLE THROUGHOUT SHIFT. WALKER BY THE BEDSIDE. INSTRUCTED TO USE CALL LIGHT FOR ASSISTANCE. PATIENT VERBALIZED UNDERSTANDING. SAFETY PRECAUTIONS IN PLACE. PATIENT BED IS LOCKED AND IN LOWEST POSITION. CALL LIGHT WITHIN REACH. WILL ENDORSE CARE TO PM SHIFT FOR VAN.
--- NOTE | 2019-11-20 19:30 | NUR ---
MS RN OPENING NOTE RECEIVED PATIENT IN BED. A/O X3. TOLERATING ROOM AIR. RR EVEN AND UNLABORED. NO S/ SOB NOTED. NO C/O PAIN AT THIS TIME. IN NO APPARENT DISTRESS. IV ACCESS IN RFA#22 RUNNING D5NS@75M/HR. BED IS LOW AND LOCKED, HOB ELEVATED IN SEMI FOWLERS, SIDE RAILS UP X2. CALL LIGHT WITHIN REACH.W ILL CONTINUE TO MONITOR.
[2019-11-20 20:00] VITALS: BP 130/80
[2019-11-20 20:17] VITALS: BP 130/80
[2019-11-20] MEDS: MIRTAZAPINE 15 MG TABLET PO SCH (21:02)
--- NOTE | 2019-11-21 06:19 | NUR ---
MS RN CLOSING NOTE PATIENT IN BED. A/O X3. TOLERATING ROOM AIR. RR EVEN AND UNLABORED. NO SOB NOTED. NO C/O PAIN THROUGHOUT SHIFT. NO DISTRESS NOTES. IV ACCESS IN LEFT WRIST #20 RUNNING D5NS@75M/HR. BED IS LOW AND LOCKED, HOB ELEVATED IN SEMI FOWLERS, SIDE RAILS UP X2. CALL LIGHT WITHIN REACH. WILL ENDORSE TO NEXT SHIFT.
[2019-11-21 06:28] LABS: BASOPHILS % (AUTO) 0.1 % (0.0-2.0); EOSINOPHILS % (AUTO) 4.3 % (0.0-6.0); HEMATOCRIT 41 % (39-51); LYMPHOCYTES # (AUTO) 1.4 /CMM (0.8-4.8); LYMPHOCYTES % (AUTO) 18.7 % (20.0-44.0); MEAN CORPUSCULAR HGB CONC 34 g/dl (31.0-36.0); MEAN CORPUSCULAR VOLUME 102 fL (80-96); MONOCYTES # (AUTO) 0.8 /CMM (0.1-1.30); MONOCYTES % (AUTO) 11.2 % (2.0-12.0); NEUTROPHILS # (AUTO) 4.9 /CMM (1.8-8.9); NEUTROPHILS % (AUTO) 65.7 % (43.0-81.0); PLATELET COUNT (AUTO) 172 /CMM (150-450); RED BLOOD CELL COUNT(AUTO) 4.05 MIL/uL (4.5-6.0); WHITE BLOOD COUNT (AUTO) 7.5 K/uL (4.3-11.0)
[2019-11-21 06:41] LABS: CALCIUM, SERUM 8.1 mg/dL (8.5-10.1); CREATININE 1.2 mg/dL (0.6-1.3); POTASSIUM 3.8 mmol/L (3.5-5.1)
--- NOTE | 2019-11-21 07:33 | NUR ---
MS RN OPENING NOTES RECEIVED PATIENT IN BED, AWAKE, A/O X3. PATIENT ON ROOM AIR BREATHING EVEN AND UNLABORED; NO SOB NOTED AT THIS TIME. PATIENT DENIES PAIN AT THIS MOMENT. PT HAS AN IV ACCESS ON RFA GAUGE # 22 INFUSING D5NS @ 75 ML/HR. SAFETY PRECAUTIONS IN PLACE; BED IN LOW POSITION AND LOCKED, RAILS UP X2, CALL LIGHT WITHIN REACH. WILL CONTINUE TO MONITOR PATIENT.
[2019-11-21 08:00] VITALS: BP 140/93
[2019-11-21] MEDS: GABAPENTIN 100 MG CAPSULE PO SCH ×3 (08:40→16:43)
[2019-11-21] MEDS: QUETIAPINE FUMARATE 25 MG TABLET PO SCH ×4 (08:40→21:15)
[2019-11-21] MEDS: ENOXAPARIN SODIUM 40 MG/0.4 ML DISP.SYRIN SQ SCH (08:41)
[2019-11-21] MEDS: DIVALPROEX SODIUM 250 MG TABLET.DR PO SCH ×3 (08:50→16:51)
[2019-11-21 16:00] VITALS: BP 141/79
[2019-11-21] MEDS: CEFTRIAXONE 1 G in IV D5W 50 ML IV SCH (18:36)
--- NOTE | 2019-11-21 18:58 | NUR ---
MS RN CLOSING NOTES PATIENT IN BED, AWAKE, A/O X3. PATIENT ON ROOM AIR BREATHING EVEN AND UNLABORED; NO SOB NOTED AT THIS TIME. PATIENT DENIES PAIN AT THIS MOMENT. PT HAS AN IV ACCESS ON RFA GAUGE # 22. PATIENT HAD EPISODES OF ANXIETY THROUGHOUT THE DAY. ALL NEEDS ATTENDED TOO THROUGHOUT THE DAY. SAFETY PRECAUTIONS IN PLACE; BED IN LOW POSITION AND LOCKED, RAILS UP X2, CALL LIGHT WITHIN REACH. WILL ENDORSE TO CIGARETTE PACKING MACHINE OPERATOR NURSE.
--- NOTE | 2019-11-21 19:36 | NUR ---
MS RN NOTES RECEIVED PATIENT IN BED, AWAKE, A/O X3. PATIENT ON ROOM AIR BREATHING EVEN AND UNLABORED; NO SOB NOTED AT THIS TIME. PATIENT DENIES PAIN AND DISCOMFORT AT THIS MOMENT. PT HAS AN IV ACCESS ON RFA GAUGE # 22 INFUSING D5NS @ 75 ML/HR. SAFETY PRECAUTIONS IN PLACE; BED IN LOW POSITION AND LOCKED, RAILS UP X2, CALL LIGHT WITHIN REACH. ASPIRATION PRECAUTION EMPHASIZED. WILL CONTINUE TO MONITOR PATIENT ACCORDINGLY.
[2019-11-21 20:17] VITALS: BP 142/73
[2019-11-21] MEDS: MIRTAZAPINE 15 MG TABLET PO SCH (21:15)
[2019-11-22 04:44] VITALS: BP 159/79
--- NOTE | 2019-11-22 06:40 | NUR ---
MS RN NOTES all needs attended and met, PATIENT IN BED, able to rest and slept at intervals, , A/O X3. PATIENT ON ROOM AIR BREATHING EVEN AND UNLABORED; NO SOB NOTED AT THIS TIME. PATIENT DENIES PAIN AND DISCOMFORT AT THIS MOMENT. PT HAS AN IV ACCESS ON RFA GAUGE # 22 INFUSING D5NS @ 75 ML/HR. SAFETY PRECAUTIONS IN PLACE; BED IN LOW POSITION AND LOCKED, RAILS UP X2, CALL LIGHT WITHIN REACH. ASPIRATION PRECAUTION EMPHASIZED. WILL ENDORSE TO AM NURSE FOR CONTINUITY OF CARE.
[2019-11-22 06:54] LABS: BASOPHILS % (AUTO) 0.1 % (0.0-2.0); EOSINOPHILS % (AUTO) 4.2 % (0.0-6.0); HEMATOCRIT 45 % (39-51); HEMOGLOBIN 14.8 g/dL (13.5-17.5); LYMPHOCYTES # (AUTO) 1.4 /CMM (0.8-4.8); LYMPHOCYTES % (AUTO) 17.1 % (20.0-44.0); MEAN CORPUSCULAR HGB CONC 33 g/dl (31.0-36.0); MEAN CORPUSCULAR VOLUME 102 fL (80-96); MONOCYTES # (AUTO) 0.9 /CMM (0.1-1.30); MONOCYTES % (AUTO) 11.4 % (2.0-12.0); NEUTROPHILS # (AUTO) 5.3 /CMM (1.8-8.9); NEUTROPHILS % (AUTO) 67.2 % (43.0-81.0); PLATELET COUNT (AUTO) 189 /CMM (150-450); RED BLOOD CELL COUNT(AUTO) 4.35 MIL/uL (4.5-6.0); WHITE BLOOD COUNT (AUTO) 7.9 K/uL (4.3-11.0)
[2019-11-22 07:28] LABS: BILIRUBIN,TOTAL 0.5 mg/dL (0.2-1.0); CALCIUM, SERUM 8.2 mg/dL (8.5-10.1); CREATININE 1.1 mg/dL (0.6-1.3); MAGNESIUM 2.1 mg/dL (1.8-2.4); PHOSPHORUS 3.3 mg/dL (2.5-4.9); POTASSIUM 4.3 mmol/L (3.5-5.1); TOTAL PROTEIN, SERUM 6.6 g/dL (6.4-8.2)
--- NOTE | 2019-11-22 08:00 | NUR ---
MS RN OPENING NOTES RECEIVED PATIENT IN BED, AWAKE ALERT AND ORIENTED 2-3. NO CARDIAC OR RESP DISTRESS NOTED. SATURATING WELL ON ROOM AIR BREATHING EVEN AND UNLABORED; NO SOB NOTED AT THIS TIME. PATIENT DENIES PAIN AND DISCOMFORT AT THIS MOMENT. IV ACCESS ON RFA GAUGE # 22 INFUSING D5NS @ 75 ML/HR. SAFETY PRECAUTIONS IN PLACE; BED IN LOW POSITION AND LOCKED, RAILS UP X2, CALL LIGHT WITHIN REACH. ASPIRATION PRECAUTION EMPHASIZED.
[2019-11-22] MEDS: DIVALPROEX SODIUM 250 MG TABLET.DR PO SCH ×3 (08:22→16:04)
[2019-11-22] MEDS: ENOXAPARIN SODIUM 40 MG/0.4 ML DISP.SYRIN SQ SCH (08:22)
[2019-11-22] MEDS: QUETIAPINE FUMARATE 25 MG TABLET PO SCH ×4 (08:22→20:59)
[2019-11-22] MEDS: GABAPENTIN 100 MG CAPSULE PO SCH ×3 (08:22→16:04)
[2019-11-22 08:41] VITALS: BP 172/98
--- NOTE | 2019-11-22 18:00 | NUR ---
PT SHOWERED PT WAS GIVEN A SHOWER TODAY AND WAS VERY THANKFUL. STATES HE FEELS MUCH BETTER AND COMFORTABLE.
[2019-11-22] MEDS: CEFTRIAXONE 1 G in IV D5W 50 ML IV SCH (18:08)
--- NOTE | 2019-11-22 18:17 | NUR ---
MS RN CLOSING NOTES PATIENT IN BED, AWAKE ALERT AND ORIENTED 2-3. NO CARDIAC OR RESP DISTRESS NOTED. SATURATING WELL ON ROOM AIR BREATHING EVEN AND UNLABORED; NO SOB NOTED . PATIENT DENIES PAIN AND DISCOMFORT AT THIS MOMENT. IV ACCESS ON RFA GAUGE # 22 IV ATB ROCEPHIN IS CURRENTLY INFUSING. TOLERATING WELL. SAFETY PRECAUTIONS IN PLACE; BED IN LOW POSITION AND LOCKED, RAILS UP X2, CALL LIGHT WITHIN REACH.
--- NOTE | 2019-11-22 19:20 | NUR ---
MS/RN OPENING NOTES RECEIVED PATIENT IN BED, SLEEPING COMFORTABLY. A/OX2-3. NO CARDIAC OR RESP DISTRESS NOTED. NO SOB NOTED. SATURATING WELL ON ROOM AIR, BREATHING EVEN AND UNLABORED; PATIENT DENIES PAIN AND DISCOMFORT AT THIS MOMENT. IV ACCESS ON RFA GAUGE # 22 INFUSING D5NS @ 75 ML/HR. SAFETY PRECAUTIONS IN PLACE; BED IN LOW POSITION AND LOCKED, RAILS UP X2, CALL LIGHT WITHIN REACH. ASPIRATION PRECAUTION EMPHASIZED. WILL CONTINUE MONITORING PT. ACCORDINGLY.
[2019-11-22 20:05] VITALS: BP 128/75
[2019-11-22 20:21] VITALS: BP 128/75
[2019-11-22] MEDS: MIRTAZAPINE 15 MG TABLET PO SCH (22:00)
--- NOTE | 2019-11-22 23:53 | NUR ---
MS/RN NOTES: IV SITE ON THE R FA #22G GOT INFILTRATED. APPLIED ICE, AND ELEVATED FOR COMFORT. STARTED A NEW LINE ON THE RIGHT FA #22G PATENT AND INTACT. FLUSHING WELL.
--- NOTE | 2019-11-23 06:21 | NUR ---
MS/RN CLOSING NOTES PATIENT IN BED SLEEPING, REMAINS ALERT AND ORIENTED 2-3. NO CARDIAC OR RESP DISTRESS NOTED. SATURATING WELL ON ROOM AIR BREATHING EVEN AND UNLABORED; NO SOB NOTED . PATIENT DENIES PAIN AND DISCOMFORT AT THIS MOMENT. IV ACCESS ON RFA GAUGE # 22 IV, INTACT AND PATENT. SAFETY PRECAUTIONS IN PLACE; BED IN LOW POSITION AND LOCKED, RAILS UP X2, CALL LIGHT WITHIN REACH.
[2019-11-23 08:00] VITALS: BP_SYST 135; BP_SYST 166; BP_DIAS 60; BP_DIAS 70; BP_DIAS 84
--- NOTE | 2019-11-23 08:00 | NUR ---
RN NOTES RECEIVED PATIENT IN THE BED A/O X2/3 WITH FORGETFULNESS, PATIENT REDIRECTABLE, NEEDY, AND NEED CONSTANT REDIRECTION. V/S STABLE PATIENT HAS NO ACUTE RESPIRATORY DISTRESS, REFUSED PAIN. ADMINISTERED SCHEDULED MEDICATION, TOLERATED BREAKFAST WELL SELF. AMBULATORY USING WALKER. CALL LIGHT WITHIN TO REACH. CONTINUED MONITORING.
[2019-11-23] MEDS: QUETIAPINE FUMARATE 25 MG TABLET PO SCH ×3 (08:50→17:01)
[2019-11-23] MEDS: GABAPENTIN 100 MG CAPSULE PO SCH ×3 (08:50→17:01)
[2019-11-23] MEDS: DIVALPROEX SODIUM 250 MG TABLET.DR PO SCH ×3 (08:51→17:01)
[2019-11-23] MEDS: ENOXAPARIN SODIUM 40 MG/0.4 ML DISP.SYRIN SQ SCH (09:04)
[2019-11-23] MEDS ORDERED: QUET25TA PO (11:44)
[2019-11-23] MEDS ORDERED: DIVA250T4 PO (11:44)
[2019-11-23] MEDS ORDERED: GABA100C PO (11:44)
[2019-11-23] MEDS ORDERED: CEPH-570 PO (11:44)
--- NOTE | 2019-11-23 12:14 | NUR ---
RN NOTES PATIENT WILL DISCHARGE SNF PER HOSPITALIST ORDER.
[2019-11-23] MEDS ORDERED: GABAPENTIN 100 MG CAPSULE PO SCH (13:00)
--- NOTE | 2019-11-23 18:29 | NUR ---
RN NOTES PATIENT DISCHARGE AT THIS TIME GOING SNF . PATIENT STABLE, REFUSED PAIN, V/S WNL, AMBULATORY SELF CARE. MED RECONCILIATION AND DISCHARGE ORDER REVIEWED AND EXPLAINED TO PATIENT. REPORT GIVEN SNF ILIANA ANGELES. RN VERBALIZED UNDERSTANDING. PATIENT REFUSED SIGN PAPERWORK, AND REFUSED PICTURE TO BE TAKEN. BELONGING WITH THE PATIENT PATIENT HAS 7,144 DOLLARS COUNTED AND HANDED TO THE AMBULANCE PERSONNEL. DAUGHTER AWARE OF DISCHARGE PLANING. PATIENT WILL FOLLOW SNF SPECIAL EDUCATOR, AND PSYCHIATRIST. PATIENT MEDICAL REIMBURSEMENT MANAGER BY AMBULANCE.
--- NOTE | 2019-11-24 19:30 | NUR ---
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 PATIENT BREATHING IS UNLABORED WITH EQUAL RISE AND FALL OF THE CHEST. PATIENT IS ALERT AND ORIENTED X 2 ON ROOM AIR WITH A SPOO2 97%. PATIENT HAS LEFT FOREARM 22 GAUGE SALINE LOCK THAT IS INTACT, PATENT, AND FLUSHING WELL WITH NO S/S OF INFILTRATION. PATIENT ASSISTED WITH TURNING AND REPOSITIONING Q2HR AND PRN FOR COMFORT AND CIRCULATION. PATIENT HAS NO NEEDS AT THIS TIME. PATIENT EDUCATED ON THE USE OF THE CALL LIGHT. PATIENT BED SIDE RAILS UP X 2 FOR SAFETY. PATIENT BED IS LOCKED AND LOW WILL CONTINUE TO MONITOR AND MAINTAIN SAFETY Q15 MIN WITH THE HELP OF STAFF. Addendum: 11/24/19 at 1957 by FERMIN DAVIS RN DISREGARD WRONG PATIENT.
== END 2019-11-23 18:51 | DRG 871 ==
LOC: ER 16:59 → TELE 20:44 → MED 11-18 14:21
PROVIDERS: ADMIT Nurse Practitioner Acute Care; ATTEND Registered Nurse
DX: A41.9 Sepsis, unspecified organism (principal); N17.0 Acute kidney failure with tubular necrosis; G92 Toxic encephalopathy; F13.20 Sedative, hypnotic or anxiolytic dependence, uncomplicated; F15.93 Other stimulant use, unspecified with withdrawal; N39.0 Urinary tract infection, site not specified; F13.230 Sedative, hypnotic or anxiolytic dependence with withdrawal, uncomplicated; E78.5 Hyperlipidemia, unspecified; Z79.899 Other long term (current) drug therapy; F29 Unspecified psychosis not due to a substance or known physiological condition; R74.0 Nonspecific elevation of levels of transaminase and lactic acid dehydrogenase [LDH]; E86.9 Volume depletion, unspecified; B35.1 Tinea unguium; Z90.5 Acquired absence of kidney; F41.9 Anxiety disorder, unspecified; F32.9 Major depressive disorder, single episode, unspecified; Z85.528 Personal history of other malignant neoplasm of kidney; N18.9 Chronic kidney disease, unspecified; L60.1 Onycholysis; R23.4 Changes in skin texture; Z85.46 Personal history of malignant neoplasm of prostate; B96.89 Other specified bacterial agents as the cause of diseases classified elsewhere; M79.672 Pain in left foot; M79.671 Pain in right foot; T42.4X5A Adverse effect of benzodiazepines, initial encounter; Y92.009 Unspecified place in unspecified non-institutional (private) residence as the place of occurrence of the external cause
CPT/HCPCS: 36415; 70450-TC; 71045-TC; 72125-TC; 76705-TC; 80048-TC; 80053-TC; 80061-TC; 80076-TC; 80164-TC; 80305; 81000-TC; 82140-TC; 83605-TC; 83735-TC; 84100-TC; 84443-TC; 84484-TC; 85025-TC; 85730-TC; 87040-TC; 87081-TC; 87086-TC; 93307-TC; 97110-TC; 97116-TC; 97530-TC; G0378; G0480; J0696; J1200; J1630; J1650; J2060; J2250; J3490; J7030; J7042; J7060